=== PATIENT | male | born 1975 | race Asian ===

== ENCOUNTER 2018-04-16 13:53 | Emergency (ER) | payer OTHER ==
[~2018-04-16] VITALS: Ht 172.7 cm; Wt 99.8 kg
[2018-04-16 13:53] VITALS: BP_SYST 152
[~2018-04-16 13:53] MED LIST: AMLO5TAB4 PO; ASPI-858 PO; ASPI-862 PO; CLOP75TA2 PO; ENAL20TA PO; GLYB5TAB7 PO; LOP600 PO; METF1000 PO; METF10004 PO; METO-542 PO; METROPOLOL PO
== END 2018-04-16 15:39 | disposition left against medical advice (07) ==
LOC: SED 13:53
DX: R10.31 Right lower quadrant pain (principal); Z53.21 Procedure and treatment not carried out due to patient leaving prior to being seen by health care provider